=== PATIENT | female | born 1990 | race Caucasian/White ===

== ENCOUNTER 2018-05-22 05:52 | Inpatient (IN) ==
[2018-05-22] MEDS ORDERED: Metoclopramide 10 MG/2 ML VIAL IVP PRN (05:55)
[2018-05-22] MEDS ORDERED: *HR* Nalbuphine 10 MG/ML AMPUL IVP PRN (05:55)
[2018-05-22] MEDS ORDERED: Lidocaine -MPF 1% 5 ML AMPUL INFILT PRN (05:55)
[2018-05-22] MEDS ORDERED: Naloxone 0.4 MG/ML INJ IVP PRN (05:55)
[2018-05-22] MEDS ORDERED: Ringers Solution, Lactated 1,000 ML ONE (05:55)
[2018-05-22] MEDS ORDERED: Ondansetron 4 MG/2 ML VIAL IVP PRN (05:55)
[2018-05-22] MEDS ORDERED: Famotidine 20 MG/2 ML VIAL IVP PRN (05:55)
[2018-05-22] MEDS ORDERED: Oxytocin 20 units/ LR 1000 mL 20 UNIT/1,000 ML BAG IVC ONE ×2 (06:15→07:05)
[2018-05-22] MEDS ORDERED: Ringers Solution, Lactated 1,000 ML IVC SCH (06:15)
[2018-05-22] MEDS ORDERED: *HR* FentaNYL (PF) 100 MCG/2 ML VIAL EP ONE (06:16)
[2018-05-22 06:19] LABS: Basophils % 0.3 %; Eosinophils # 0.1 K/mcL (0.0-0.6); Eosinophils % 1.2 %; Hematocrit 36.2 % (35.3-44.9); Hemoglobin 12.1 g/dL (11.5-15.4); Immature Granulocytes % 0.1 % (0-4); Lymphocytes # 2.1 K/mcL (0.6-4.6); Lymphocytes % 27.9 %; Mean Corpuscular HGB Conc 33.4 g/dL (31.6-35.5); Mean Corpuscular Hemoglobin 28.2 pg (28.0-33.3); Mean Corpuscular Volume 84.4 fL (83.0-100.0); Mean Platelet Volume 11.8 fL (9.4-12.4); Monocytes # 0.5 K/mcL (0.0-1.3); Monocytes % 6.3 %; Neutrophils # 4.9 K/mcL (1.6-8.9); Platelet Count 148 K/mcL (140-400); Red Blood Count 4.29 M/mcL (3.82-4.97); Red Cell Distribution Width 13.5 % (11.5-14.5); Segmented Neutrophils % 64.2 %
[2018-05-22] MEDS ORDERED: Lidocaine -MPF 2% 5 ML VIAL ONE (06:20)
[2018-05-22] MEDS ORDERED: Epidural Premix (fent/bupiv) 110 ML EP SCH (06:30)
--- NOTE | 2018-05-22 06:49 | OB/GYN History & Physical ---
Date of Encounter: 05/22/18 Time of Encounter: 06:47 Assessment and Plan (1) Term Current visit: Yes Status: Acute (2) Hx of vaginal after Current visit: Yes Status: Acute (3) Hx of successful vaginal after , currently Current visit: Yes Status: Acute (4) History of delivery Current visit: Yes Status: Acute Patient is planned in active labor and ready to push. (5) Grand multipara in labor Current visit: Yes Status: Acute Qualifiers: Trimester: third trimester Qualified Code(s): O09.43 - Supervision of with grand multiparity, third trimester (6) SROM (spontaneous rupture of membranes) Current visit: Yes Status: Acute History of Present Illness Chief complaint: SROM HPI: Ms. Antonio is a 27 year old female G 5 P 4-0-0-4 at 39 1/7 weeks presented to labor and delivery with complaint of SROM at 0430. She then started having contractions. She denies any complications. Clear fluid. She has the urge to push. She was a planned induction for Saturday. Past Med Surg Social Fam HX - Past Medical History Source: patient Medical history: thyroid disease Psychiatric history: depression - Past Surgical History Surgical History: , other (tummy tuck) Additional surgical history: "tummy tuck" - Social History Smoking Status: Never smoker Smokeless Tobacco Status: No Alcohol use: none Drug use: none - Family History Mother Living Status: Still Living Hx Family Cardiac Disorders: No Hx Family Respiratory Disorders: No Hx Family Cancer: No Hx Family GI Disorders: No Hx Family Genitourinary Disorders: No Hx Family Endocrine Disorder: No Hx Family Musculoskeletal Disorders: No Hx Family Neuromuscular Disorders: No Hx Family Neurologic Disorders: No Hx Family HEENT Disorders: No Hx Family Autoimmune Disorders: No Hx Family Reproductive Disorders: No Hx Family Psychosocial Disorders: No Hx Family Medical Disorders: No Obstetrical History - Pregnancies : 5 Para: 4 Livin - History/Complications History/Complications: second was , she has 'd since then Medications and Allergies Keflex 500 mg PO BID 05/22/18 [History] Levothyroxine Sodium 100 mcg PO DAILY 05/22/18 [History] Multi Tablet 1 tab PO DAILY 05/22/18 [History] Sertraline 50 mg PO DAILY 05/22/18 [History] Allergy/AdvReac Type Severity Reaction Status Date / Time Penicillins Allergy Hives Verified 05/26/16 20:42 Review of System OB All systems PM: reviewed and no additional remarkable complaints except as stated Exam - Vital Signs Vital signs: Initial Vital Signs Resp BP 16 123/70 05/22/18 05:57 05/22/18 05:57 - Constitutional Constitutional: well developed, well nourished, no acute distress, obese - HEENT HEENT: EOMI - Lungs Respiratory exam: CTAB - Cardiovascular Cardiovascular exam: RRR - Abdomen Abdomen: Present: bowel sounds normal, gravid, non tender - Vulva Vulva: bilateral: normal - Vagina Vagina: Present: normal moisture - Cervix Dilation: 10 Effacement: 100 Station: +2 Results Result Diagrams: 05/22/18 05:55 All other labs normal. - VTE Reasons for not Prescribing Prophylaxis: Treatment not Indicated - Low risk for VTE
--- NOTE | 2018-05-22 06:56 | OB/GYN Procedure Note ---
Delivery - Delivery Date: 05/22/18 Provider: Peg Ashby Intrapartum events: precipitous labor- <3hr Delivery induction: none Delivery monitor: external FHT, external uterine Anesthesia: local Quantitated Blood Loss: 100 - Infant (s) Infant A Infant Delivery Date: 05/22/18 Infant Delivery Time: 06:24 Presentation: vertex Position: OP Route of delivery: Gender: Male Viability: Viable Pounds: 8 Ounces: 11 Weight Gram: 3.94 kg at 1 minute: 8 at 5 mins: 9 Shoulder Dystocia: not encountered Specimens collected: cord blood Placenta: spontaneous Cord: 3 umbilical vessels - Repair Episiotomy: none Laceration Description: Perineal - 2nd Degree - Complications Delivery complications: none Delivery comments: Called to room with patient complete and +2 station. Under maternal effort she delivered a viable male weighing 8 lbs. 11 oz. and Apgars 8 and 9 at one and 5 minutes respectively over second-degree perineal laceration. Following delivery of the head there was no nuchal cord or shoulder dystocia encountered. Infant delivered with maternal effort and was placed on mom's abdomen. Cord was allowed to cease pulsations and then was double clamped and cut with assistance from the father. Cord blood was collected. The second-degree laceration was anesthetized using 1% lidocaine and repaired using 3-0 Vicryl in standard fashion. Placenta then delivered spontaneously, complete, and intact with a three-vessel cord. Mother and infant recovering in the LDR in stable condition. - Disposition Mom disposition: stable in LDR [place] disposition: stable in LDR
[2018-05-22] MEDS ORDERED: Oxytocin 20 units/ LR 1000 mL 20 UNIT/1,000 ML BAG IVC SCH (07:05)
[2018-05-22] MEDS ORDERED: Lidocaine/EPI 1:100k 1% 30 ML VIAL INFILT ONE (07:05)
[2018-05-22] MEDS ORDERED: Acetaminophen 325 MG TABLET PO PRN (07:05)
[2018-05-22] MEDS: Ibuprofen 600 MG TABLET PO PRN ×2 (07:21→16:12)
[2018-05-22] MEDS: cephALEXin 500 MG CAPSULE PO SCH ×2 (10:34→20:22)
[2018-05-22] MEDS: Prenatal Vit/FA 1 EACH TABLET PO SCH (10:34)
[2018-05-23] MEDS: Ibuprofen 600 MG TABLET PO PRN (05:44)
[2018-05-23 07:53] VITALS: BP 96/53
[2018-05-23] MEDS: cephALEXin 500 MG CAPSULE PO SCH (08:45)
[2018-05-23] MEDS: Prenatal Vit/FA 1 EACH TABLET PO SCH (08:46)
[2018-05-23] MEDS ORDERED: Lanolin 7 G OINT...G. TP PRN (09:12)
--- NOTE | 2018-05-23 11:49 | Discharge Summary ---
Date of Encounter: 05/23/18 Time of Encounter: 11:48 - Discharge Diagnosis (1) Status post vaginal delivery Priority: Secondary Status: Acute Comments: Status post vaginal delivery day 1, history of previous Meeting day 1 milestones Pain well controlled Lochia light Discussed safe spacing, undecided on control Well to discharge Follow up in 4 weeks (2) 39 weeks gestation of Priority: Primary Status: Acute Comments: 27 y/o now who presented with SROM at 39+1 weeks History of with second , has done since (3) anemia Priority: Secondary Status: Acute Comments: Hgb 12.1, Hct 36.2 Will continue ferrous sulfate - Discharge Medications Prescriptions: Ibuprofen [Motrin] 600 mg PO Q6HR PRN #30 tablet PRN Reason: Cramping Docusate [Colace] 100 mg PO BID #20 capsule Ferrous Sulfate 325 mg PO DAILY #90 tablet Home Medications: Keflex 500 mg PO BID 05/22/18 [History] Levothyroxine Sodium 100 mcg PO DAILY 05/22/18 [History] Multi Tablet 1 tab PO DAILY 05/22/18 [History] Sertraline 50 mg PO DAILY 05/22/18 [History] Acetaminophen [Tylenol] 650 mg PO Q6HR PRN tablet 05/23/18 [Rx] Docusate [Colace] 100 mg PO BID #20 capsule 05/23/18 [Rx] Ferrous Sulfate 325 mg PO DAILY #90 tablet 05/23/18 [Rx] Ibuprofen [Motrin] 600 mg PO Q6HR PRN #30 tablet 05/23/18 [Rx] Lanolin [Lansinoh] 1 appl TP TID PRN oint...g. 05/23/18 [Rx] Allergies/Adverse Reactions: Allergy/AdvReac Type Severity Reaction Status Date / Time Penicillins Allergy Hives Verified 05/26/16 20:42 Data Procedures and tests throughout hospitalization: Laboratory Tests 05/22/18 05:55 WBC 7.7 RBC 4.29 Hgb 12.1 Hct 36.2 MCV 84.4 MCH 28.2 MCHC 33.4 RDW 13.5 Plt Count 148 MPV 11.8 Immature Gran % 0.1 Seg Neutrophils % 64.2 Lymphocytes % 27.9 Monocytes % 6.3 Eosinophils % 1.2 Basophils % 0.3 Neutrophils # 4.9 Lymphocytes # 2.1 Monocytes # 0.5 Eosinophils # 0.1 Basophils # 0.0 Date of admission: 05/22/18 05:52 Primary care physician: Gwen Quick CNP Consults: 05/22/18 07:05 Consult to Coating Mixer Tender [CONS] Routine Comment: Vaginal delivery, consult needed Discharging clinician: Eulalia Renee Anticipated date of discharge: 05/23/18 - Patient Status Disposition: Home, Self-Care Condition: Good Functional capacity at discharge: independent ambulation Overall status at discharge: patient is back to baseline - Discharge Instructions Follow Up With: Gwen Quick CNP [Primary Care Provider] - - Diet and Activity Activity: resume usual activities as tolerated Diet: advance to your usual diet Hospital Course Reason for admission: rupture of membranes Delivery: Episiotomy: none Laceration: 2nd degree (2nd degree perineal laceration repaired) Other procedures: none complications: none Discharge diagnosis: IUP at term delivered [place] baby: male Hospital course: Called to room with patient complete and +2 station. Under maternal effort she delivered a viable male weighing 8 lbs. 11 oz. and Apgars 8 and 9 at one and 5 minutes respectively over second-degree perineal laceration. Following delivery of the head there was no nuchal cord or shoulder dystocia encountered. delivered with maternal effort and was placed on mom's abdomen. Cord was allowed to cease pulsations and then was double clamped and cut with assistance from the father. Cord blood was collected. The second-degree laceration was anesthetized using 1% lidocaine and repaired using 3-0 Vicryl in standard fashion. Placenta then delivered spontaneously, complete, and intact with a three-vessel cord. Mother and recovering in the LDR in stable condition. Time Attestation: Total time spent providing and/or coordinating discharge services: Time Spent: Less than 30 minutes Exam - Constitutional Vitals: Temp Pulse Resp BP Pulse Ox 98.1 F 77 16 96/53 98 05/23/18 07:30 05/23/18 07:30 05/23/18 07:30 05/23/18 07:30 05/23/18 05:46 General appearance IM: A&O X 3, pleasant, no acute distress - Respiratory Respiratory exam: Present: CTAB - Cardiovascular Cardiovascular exam IM: Present: RRR, +S1, +S2 - GI/Abdominal GI/Abdominal exam IM: normal bowel sounds, soft - External exam: normal external exam Uterine Tone: Firm Uterus Position: 1 Finger Above Umbilicus - Extremities Exam Extremities exam IM: Present: normal inspection. Absent: pedal edema, tenderness - Neurological Exam Neurological exam: CN II-XII intact, oriented X3 - Psychiatric Additional comments: Mood is appropriate
== END 2018-05-23 15:07 | disposition home or self-care (01) | DRG 560 ==
LOC: 1NENULAB 05:52 → 1NENUOBS 12:01
PROVIDERS: ADMIT Registered Nurse; ATTEND Registered Nurse

== ENCOUNTER 2019-09-18 09:59 | Inpatient (IN) ==
[2019-09-18] MEDS ORDERED: Naloxone 0.4 MG/ML INJ IVP PRN (11:11)
[2019-09-18] MEDS ORDERED: Metoclopramide 10 MG/2 ML VIAL IVP PRN (11:11)
[2019-09-18] MEDS ORDERED: Famotidine 20 MG/2 ML VIAL IVP PRN (11:11)
[2019-09-18] MEDS ORDERED: Ondansetron 4 MG/2 ML VIAL IVP PRN (11:11)
[2019-09-18] MEDS ORDERED: Oxytocin 20 units/ LR 1000 mL 20 UNIT/1,000 ML BAG IVC SCH ×2 (11:15→21:30)
[2019-09-18] MEDS ORDERED: Bupivacaine-MPF 0.25% 10 ML VIAL EP ONE (11:37)
[2019-09-18] MEDS ORDERED: *HR* FentaNYL (PF) 100 MCG/2 ML VIAL EP ONE (11:37)
[2019-09-18] MEDS ORDERED: EPHEDrine 50 MG/ML VIAL IVP PRN (11:37)
[2019-09-18] MEDS ORDERED: Epidural Premix (fent/bupiv) 110 ML EP SCH (11:45)
[2019-09-18 12:25] LABS: Basophils % 0.1 %; Eosinophils # 0.1 K/mcL (0.0-0.6); Eosinophils % 0.9 %; Hematocrit 34.7 % (35.3-44.9); Hemoglobin 11.5 g/dL (11.5-15.4); Immature Granulocytes % 0.3 % (0-4); Lymphocytes # 1.5 K/mcL (0.6-4.6); Lymphocytes % 21.4 %; Mean Corpuscular HGB Conc 33.1 g/dL (31.6-35.5); Mean Corpuscular Hemoglobin 28.8 pg (28.0-33.3); Mean Corpuscular Volume 86.8 fL (83.0-100.0); Mean Platelet Volume 11.6 fL (9.4-12.4); Monocytes # 0.4 K/mcL (0.0-1.3); Monocytes % 6.5 %; Neutrophils # 4.8 K/mcL (1.6-8.9); Platelet Count 143 K/mcL (140-400); Red Cell Distribution Width 15.1 % (11.5-14.5); Segmented Neutrophils % 70.8 %; White Blood Count 6.8 K/mcL (4.3-11.1)
[2019-09-18] MEDS: Ringers Solution, Lactated 1,000 ML IVC SCH ×2 (12:26→13:22)
[2019-09-18 12:33] LABS: Amphetamine Screen,Urine Negative ng/mL (Cutoff=1000); Barbiturate Screen,Urine Negative ng/mL (Cutoff=200); Benzodiazepines Screen,Urine Negative ng/mL (Cutoff=200); Cannabinoid Screen,Urine Negative ng/mL (Cutoff = 50); Cocaine Screen,Urine Negative ng/mL (Cutoff= 300); Opiate Screen,Urine Negative ng/mL (Cutoff=300); Phencyclidine Screen,Urine Negative ng/mL (Cutoff=25)
[2019-09-18] MEDS ORDERED: Clindamycin 900 MG/50 ML 900 MG/50 ML IV.SOLN IVPB SCH ×2 (13:00→16:00)
[2019-09-18] MEDS ORDERED: Lanolin 7 G OINT...G. TP PRN (21:30)
[2019-09-18] MEDS ORDERED: Benzocaine/Menthol 56 GM AEROSOL SPRAY TP PRN (21:30)
[2019-09-18] MEDS ORDERED: Measles/Mumps/Rubella Vacc 0.5 ML VIAL SQ PRN (21:30)
[2019-09-18] MEDS ORDERED: Insulin DETEMIR 100 UNIT/ML X5UNITS SQ SCH (21:30)
[2019-09-18] MEDS: Acetaminophen 325 MG TABLET PO PRN (22:36)
[2019-09-19] MEDS: Ibuprofen 600 MG TABLET PO PRN ×3 (04:38→16:52)
[2019-09-19] MEDS: Acetaminophen 325 MG TABLET PO PRN ×3 (05:15→16:52)
[2019-09-19 08:09] LABS: Basophils % 0.2 %; Eosinophils # 0.1 K/mcL (0.0-0.6); Eosinophils % 0.8 %; Hematocrit 33.2 % (35.3-44.9); Hemoglobin 10.9 g/dL (11.5-15.4); Immature Granulocytes % 0.3 % (0-4); Lymphocytes # 1.4 K/mcL (0.6-4.6); Lymphocytes % 21.8 %; Mean Corpuscular HGB Conc 32.8 g/dL (31.6-35.5); Mean Corpuscular Hemoglobin 28.8 pg (28.0-33.3); Mean Corpuscular Volume 87.6 fL (83.0-100.0); Mean Platelet Volume 11.4 fL (9.4-12.4); Monocytes # 0.5 K/mcL (0.0-1.3); Monocytes % 7.4 %; Neutrophils # 4.4 K/mcL (1.6-8.9); Platelet Count 124 K/mcL (140-400); Red Blood Count 3.79 M/mcL (3.82-4.97); Red Cell Distribution Width 15.6 % (11.5-14.5); Segmented Neutrophils % 69.5 %; White Blood Count 6.3 K/mcL (4.3-11.1)
[2019-09-19] MEDS ORDERED: Prenatal Vit/FA 1 EACH TABLET PO SCH (09:00)
[2019-09-19 16:14] VITALS: BP 124/81
== END 2019-09-19 17:08 | disposition home or self-care (01) | DRG 560 ==
LOC: 1NENULAB 09:59 → 1NENUOBS 21:18
PROVIDERS: ADMIT Obstetrics & Gynecology; ATTEND Obstetrics & Gynecology